=== PATIENT | male | born 1975 ===

== ENCOUNTER 2017-03-17 01:10 | Emergency (ER) | payer OTHER ==
[2017-03-17 01:42] VITALS: RESP 20; TEMP 98; O2SAT 98
--- NOTE | 2017-03-17 01:53 | C.PDOC ---
History Of Present Illness 41 year old patient presents to the ED complaining of anxiety for one week. Patient states he has been in and out of the hospital for these symptoms in [place]. Patient states he has appointment with psychiatry in 3 weeks. He states he has been very stressed with work and family issues and has been having trouble sleeping. He reports he has tried different medications in the past, but is unable to find medication that gives full relief. He states klonopin and ativan at low dose can help but he does not want to take medications anymore. He also reports feeling blood pressure high. Denies any chest pain, palpitations, SOB, dizziness, numbness or weakness, suicidal or homicidal ideation. Time Seen by Provider: 03/17/17 01:37 Chief Complaint (Nursing): Anxiety History Per: Patient History/Exam Limitations: no limitations Onset/Duration Of Symptoms: Other (1 week) Current Symptoms Are (Timing): Still Present Suicide/Self Injury Attempted (Context): None Modifying Factor(s): None Severity: None Pain Scale Rating Of: 0 Associated Symptoms: Anxiety Recent travel outside of the [facility]: No Past Medical History Reviewed: Historical Data, Nursing Documentation, Vital Signs Vital Signs: Last Vital Signs Temp 98 F 03/17/17 02:57 Pulse 76 03/17/17 02:57 Resp 20 03/17/17 02:57 BP 135/88 03/17/17 02:57 Pulse Ox 98 03/17/17 03:34 - Medical History PMH: Anxiety, HTN Family History: States: Unknown Family Hx - Social History Hx Alcohol Use: No Hx Substance Use: No - Immunization History Hx Tetanus Toxoid Vaccination: No Hx Influenza Vaccination: No Hx Pneumococcal Vaccination: No Review Of Systems Except As Marked, All Systems Reviewed And Found Negative. Cardiovascular: Negative for: Chest Pain, Palpitations Respiratory: Negative for: Shortness of Breath Neurological: Negative for: Weakness, Numbness, Dizziness Psych: Positive for: Anxiety. Negative for: Suicidal ideation, Other ( homicidal ideation) Physical Exam - Physical Exam Appears: Non-toxic, Other (anxious) Skin: Warm, Dry Head: Atraumatic, Normacephalic Eye(s): bilateral: Normal Inspection, PERRL, EOMI Neck: Normal ROM, Supple Chest: Symmetrical Cardiovascular: Rhythm Regular Respiratory: Normal Breath Sounds, No Rales, No Rhonchi, No Wheezing Back: Normal Inspection Extremity: Normal ROM Neurological/Psych: Oriented x3, Normal Speech, Normal Cognition Gait: Steady ED Course And Treatment O2 Sat by Pulse Oximetry: 98 (room air) Pulse Ox Interpretation: Normal Medical Decision Making Medical Decision Making: Impression: 41 y/o male with anxiety Plan: * Ativan Progress: [facility] reviewed, no med rec to view. Patient reports feeling mildly better, he wants to go home and sleep. Patient with stable vital signs and denies any SI/HI. Girlfriend is at bedside. Patient to be discharged and recommend outpatient follow up Disposition - Disposition Disposition: HOME/ ROUTINE Disposition Time: 01:52 Condition: GOOD Additional Instructions: [facility] at [address] [place] [address]. Please call [phone] or [phone] to arrange appointment. If you need to speak to someone immediately call Crisis Hotline [phone] Instructions: Anxiety (ED) - POA Present On Arrival: None - Clinical Impression Clinical Impression: Anxiety - PA / SERVICE DESK ASSOCIATE / Resident Statement MD/DO has reviewed & agrees with the documentation as recorded. - Scribe Statement The provider has reviewed the documentation as recorded by the Scribe Lauren Chaney All medical record entries made by the Scribe were at my direction and personally dictated by me. I have reviewed the chart and agree that the record accurately reflects my personal performance of the history, physical exam, medical decision making, and the department course for this patient. I have also personally directed, reviewed, and agree with the discharge instructions and disposition.
[2017-03-17 02:59] VITALS: BP 135/88; PULSE 76
== END 2017-03-17 02:57 | disposition home or self-care (01) ==
LOC: C.ER 01:10
DX: F41.9 Anxiety disorder, unspecified (principal); I10 Essential (primary) hypertension

== ENCOUNTER 2017-03-21 23:28 | Inpatient (IN) | payer MEDICAID, OTHER ==
[2017-03-21 23:55] VITALS: O2SAT 100
[2017-03-22 01:54] LABS: BASO # 0.1 K/uL (0.0-0.2); EOS % 0.3 % (0.0-4.0); HEMATOCRIT 46.5 % (35.0-51.0); LYMPH # 1.3 K/uL (1.0-4.3); LYMPH % 10.9 % (20.0-40.0); MEAN CELL VOLUME 83.8 fL (80.0-94.0); MEAN CORPUSCULAR HEMOGLOBIN 28.2 pg (27.0-31.0); MEAN CORPUSCULAR HGB CONC 33.7 g/dL (33.0-37.0); MEAN PLATELET VOLUME 8.9 fL (7.2-11.7); MONO # 0.8 K/uL (0.0-0.8); MONO % 6.7 % (0.0-10.0); RED CELL DISTRIBUTION WIDTH 12.6 % (11.5-14.5); WHITE BLOOD COUNT 12.2 K/uL (4.8-10.8)
[2017-03-22 01:55] LABS: URINE BILIRUBIN NEGATIVE (NEGATIVE); URINE BLOOD NEGATIVE (NEGATIVE); URINE COLOR Colorless (YELLOW); URINE GLUCOSE (UA) NORMAL (Normal); URINE KETONE NEGATIVE (NEGATIVE); URINE LEUKOCYTE ESTERASE NEG Leu/uL (Negative); URINE PROTEIN NEGATIVE (NEGATIVE); URINE UROBILINOGEN NORMAL mg/dL (0.2-1.0); WBC URINE < 1 /hpf (0-5)
[2017-03-22 02:00] LABS: CHLORIDE 101 mmol/L (98-107); POTASSIUM 3.9 mmol/L (3.6-5.2); SODIUM 139 mmol/L (132-148)
[2017-03-22 02:02] LABS: AST/SGOT 29 U/L (17-59); BILIRUBIN,TOTAL 0.7 mg/dL (0.2-1.3); CARBON DIOXIDE 22 mmol/L (22-30); GFR AFRICAN-AMERICAN > 60
[2017-03-22 02:03] LABS: ALB/GLOB RATIO 1.3 (1.0-2.1); ALCOHOL SERUM < 10 mg/dl (0-10); ALKALINE PHOSPHATASE 88 U/L (38-126); ALT/SGPT 51 U/L (21-72); BLOOD UREA NITROGEN 15 mg/dL (9-20); CALCIUM 9.3 mg/dl (8.6-10.4); GLUCOSE,RANDOM 106 mg/dL (75-110); TOTAL PROTEIN 7.9 g/dL (6.3-8.3)
--- NOTE | 2017-03-22 02:25 | C.PDOC ---
History Of Present Illness A 41 y/o male c/o episodes of anxiety that are on and off for the past 2 weeks. Pt denies suicidal or homicidal ideation, or any physical complaints. Time Seen by Provider: 03/21/17 23:55 Chief Complaint (Nursing): Anxiety History Per: Patient History/Exam Limitations: no limitations Onset/Duration Of Symptoms: Days Current Symptoms Are (Timing): Still Present Suicide/Self Injury Attempted (Context): None Modifying Factor(s): None Severity: Mild Associated Symptoms: denies: Suicidal Thoughts, Suicidal Plan Involuntary Hold By: None Recent travel outside of the [place]: No Additional History Per: Patient Past Medical History Reviewed: Historical Data, Nursing Documentation, Vital Signs Vital Signs: Last Vital Signs Temp 98.4 F 03/22/17 03:52 Pulse 72 03/22/17 03:52 Resp 16 03/22/17 03:52 BP 139/86 03/22/17 03:52 Pulse Ox 100 03/22/17 03:52 - Medical History PMH: Anxiety, HTN Denies: Chronic Kidney Disease Family History: States: Unknown Family Hx - Social History Hx Alcohol Use: No Hx Substance Use: No - Immunization History Hx Tetanus Toxoid Vaccination: No Hx Influenza Vaccination: No Hx Pneumococcal Vaccination: No Review Of Systems Except As Marked, All Systems Reviewed And Found Negative. Constitutional: Negative for: Fever, Chills Gastrointestinal: Negative for: Nausea, Vomiting Psych: Positive for: Anxiety. Negative for: Suicidal ideation, Withdrawal Physical Exam - Physical Exam Appears: Non-toxic, No Acute Distress Skin: Warm, Dry Head: Atraumatic, Normacephalic Eye(s): bilateral: Normal Inspection Cardiovascular: Rhythm Regular, No Murmur Respiratory: Normal Breath Sounds, No Accessory Muscle Use, No Wheezing Gastrointestinal/Abdominal: Soft, No Tenderness Neurological/Psych: Oriented x3, Normal Speech, Other (No focal deficit) ED Course And Treatment - Laboratory Results Result Diagrams: 03/22/17 01:48 03/22/17 01:48 O2 Sat by Pulse Oximetry: 100 (RA) Pulse Ox Interpretation: Normal Medical Decision Making Medical Decision Making: Impression: 41 y/o male c/o episodes of anxiety for 2 weeks. Plans: -Tylenol -Atarax -Desyrel -Reassess Disposition Discussed With : Jessenia Louis Doctor Will See Patient In The: Hospital Counseled Patient/Family Regarding: Diagnosis - Disposition Disposition: HOSPITALIZED Disposition Time: 02:24 Condition: STABLE - POA Present On Arrival: None (generalized anxiety disorder) - Clinical Impression Clinical Impression: Anxiety disorder - Scribe Statement The provider has reviewed the documentation as recorded by the Scribe Denise leija All medical record entries made by the Itzelibe were at my direction and personally dictated by me. I have reviewed the chart and agree that the record accurately reflects my personal performance of the history, physical exam, medical decision making, and the department course for this patient. I have also personally directed, reviewed, and agree with the discharge instructions and disposition.
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
[2017-03-23 10:38] VITALS: TEMP 97.7
--- NOTE | 2017-03-23 12:04 | CARD ---
APPROVED REPORT EKG Measurement Heart [id number] <Conclusion> Sinus tachycardia T wave abnormality, consider inferior ischemia T wave abnormality, consider anterolateral ischemia Abnormal ECG
--- NOTE | 2017-03-23 15:02 | PCM.PYCHPN ---
Psychiatric Progress Note - Psychiatric Progress Note Patient Chief Complaint: 'I'm feeling very anxious' Mental Status Examination - Cognitive Function Orientation: Person, Place, Situation, Time - Mood Mood: Depressed, Anxious - Affect Affect: Constricted, Depressed - Formal Thought Process Formal Thought Process: No Impairment - Homicidal Ideation Homicidal Ideation: No Goal/Treatment Plan - Goal/Treatment Plan Progress Toward Problem(s) and Goals/Treatment Plan: Generalized anxiety disorder R/O Major depressive disorder recurrent moderate CBT Psychoeducation Supportive therapy and group therapy Neurontin 100 mg by mouth 3 times a day BuSpar 10 mg by mouth twice a day Zoloft 25 mg daily Trazodone 50 mg by mouth daily at bedtime HTN Monitor signs and symptoms Increase Heart Rate Monitor signs and symptoms
--- NOTE | 2017-03-23 17:32 | CP.PCM.CON ---
History of Present Illness - History of Present Illness History of Present Illness: PGY-[address] Wilson HPI: Patient is a 41 year old male, with PMHx of hypertensino and anxiety, who came to the hospital on 03/22/17 c/o anxiety. Pt was accepted onto psychiatry floor, and psych team is consulting medicine for monitoring/ treatment of pts hypertension. Pt states that he has been treated for hypertension for the past two years. His PMD had placed him on Metoprolol 25mg twice daily, and pt states he was well-controlled on that medication until recently when his dosage was increased to 50mg twice daily. He denies being treated for any other health problems other than his anxiety. He does admit to recent "occasional headache," poor sleep, and the sensation of his "whole body being numb," but states this has occurred when he was under high stress lately because of tension with his girlfriend. Pt admits that thought of his BP being elevated makes him anxious, and that his two conditions "feed into each other." He denies lightheadedness/dizziness at this time, as well as chest pain, palpitations, shortness of breath, abdominal pain, episodes of nausea/vomiting, scotoma, or extremity weakness. 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 Allergies: Alprazolam, Clonazepam, Metoclopramide Review of Systems - Constitutional Constitutional: absent: Chills, Fever, Weakness - EENT Eyes: absent: Blurred Vision, Change in Vision Ears: absent: Ear Discharge Nose/Mouth/Throat: absent: Nasal Congestion, Sore Throat - Cardiovascular Cardiovascular: absent: Chest Pain, Chest Pain at Rest, Dyspnea, Dyspnea on Exertion, Rapid Heart Rate - Respiratory Respiratory: absent: Cough, Hemoptysis, Chest Congestion - Gastrointestinal Gastrointestinal: absent: Abdominal Pain, Nausea, Vomiting - Genitourinary Genitourinary: absent: Difficulty Urinating, Dysuria - Musculoskeletal Musculoskeletal: absent: Back Pain, Numbness, Tingling - Integumentary Integumentary: absent: Dry Skin - Neurological Neurological: absent: Tingling, Weakness - Psychiatric Psychiatric: absent: Anxiety, Depression - Endocrine Endocrine: absent: Fatigue, Polydipsia, Polyphagia Past Patient History - Infectious Disease Hx of Infectious Diseases: None - Past Social History Smoking Status: Never Smoked - CARDIAC Hx Cardiac Disorders: No Hx Angina: No Hx Atrial Fibrillation: No Hx Cardia Arrhythmia: No Hx Circulatory Problems: No Hx Congestive Heart Failure: No Hx Heart Attack: No Hx Heart Murmur: No Hx Heart Transplant: No Hx Hypercholesterolemia: No Hx Hypertension: Yes Hx Hypotension: No Hx Internal Defibrillator: No Hx Mitral Valve Prolapse: No Hx Pacemaker: No Hx Peripheral Edema: No Hx Peripheral Vascular Disease: No Other/Comment: Familial history of obstructive coronary disease. (Father) - PULMONARY Hx Respiratory Disorders: No Hx Tuberculosis: No - NEUROLOGICAL Hx Neurological Disorder: No HX Cerebrovascular Accident: No Hx Seizures: No - HEENT Hx HEENT Problems: No - RENAL Hx Chronic Kidney Disease: No - ENDOCRINE/METABOLIC Hx Endocrine Disorders: No - HEMATOLOGICAL/ONCOLOGICAL Hx Blood Disorders: No Hx Cancer: No Hx Human Immunodeficiency Virus (HIV): No - INTEGUMENTARY Hx Dermatological Problems: No - MUSCULOSKELETAL/RHEUMATOLOGICAL Hx Musculoskeletal Disorders: No - GASTROINTESTINAL Hx Gastrointestinal Disorders: No - GENITOURINARY/GYNECOLOGICAL Hx Genitourinary Disorders: No Hx Sexually Transmitted Disorders: No - PSYCHIATRIC Hx Substance Use: No - SURGICAL HISTORY Hx Surgeries: No - ANESTHESIA Hx Anesthesia: No Meds Allergies/Adverse Reactions: Allergies Allergy/AdvReac Type Severity Reaction Status Date / Time alprazolam [From Xanax] Allergy Verified 03/17/17 01:34 clonazepam [From Klonopin] Allergy Verified 03/17/17 01:34 metoclopramide [From Reglan] Allergy Verified 03/17/17 01:34 - Medications Medications: Current Medications Buspirone HCl (Buspar) 5 mg PO BID SB Last Admin: 03/23/17 17:07 Dose: 5 mg Clonidine HCl (Catapres) 0.1 mg PO Q6H PRN PRN Reason: Hypertension Last Admin: 03/22/17 21:11 Dose: 0.1 mg Hydroxyzine HCl (Atarax) 25 mg PO Q6H PRN PRN Reason: Anxiety Lorazepam (Ativan) 0.5 mg PO Q6H PRN PRN Reason: Extreme anxiety Last Admin: 03/22/17 23:36 Dose: 0.5 mg Metoprolol Tartrate (Lopressor) 50 mg PO BID [facility] Last Admin: 03/23/17 17:07 Dose: 50 mg Sertraline HCl (Zoloft) 25 mg PO DAILY [facility] Last Admin: 03/23/17 09:47 Dose: Not Given Trazodone HCl (Desyrel) 50 mg PO HS PRN PRN Reason: Insomnia Physical Exam - Constitutional Appears: Non-toxic, No Acute Distress - Head Exam Head Exam: ATRAUMATIC, NORMOCEPHALIC - Eye Exam Eye Exam: EOMI Pupil Exam: PERRL - ENT Exam ENT Exam: Mucous Membranes Moist - Neck Exam Neck exam: Negative for: Tenderness - Respiratory Exam Respiratory Exam: Clear to Auscultation Bilateral, NORMAL BREATHING PATTERN. absent: Rales, Rhonchi, Wheezes - Cardiovascular Exam Cardiovascular Exam: REGULAR RHYTHM, +S1, +S2 - GI/Abdominal Exam GI & Abdominal Exam: Normal Bowel Sounds, Soft. absent: Tenderness - Extremities Exam Extremities exam: Positive for: normal inspection. Negative for: pedal edema, tenderness - Back Exam Back exam: absent: CVA tenderness (L), CVA tenderness (R) - Neurological Exam Neurological exam: Alert, Oriented x3 - Psychiatric Exam Psychiatric exam: Normal Affect, Normal Mood - Skin Skin Exam: Dry, Normal Color, Warm Results - Vital Signs Recent Vital Signs: Last Vital Signs Temp 97.7 F 03/23/17 10:37 Pulse 88 03/23/17 15:43 Resp 20 03/23/17 10:37 BP 124/82 03/23/17 15:43 Pulse Ox 100 03/22/17 04:14 - Labs Result Diagrams: 03/22/17 01:48 03/22/17 01:48 Assessment & Plan - Assessment and Plan (Free Text) Assessment: 41 year old male with PMHx of HTN and anxiety, presenting with panic attacks. Medicine consulted to manage blood pressure. Plan: HTN Elevated on admission, normotensive now Pt treated for two years - recent increase in dosage of home med Home med restarted: Metoprolol 50mg PO BID Monitor pressure Generalized anxiety disorder Management per psych team DW Dr. Steve Young, PGY-1
[2017-03-24 09:24] LABS: BASO % 0.4 % (0.0-2.0); EOS # 0.1 K/uL (0.0-0.7); EOS % 0.8 % (0.0-4.0); LYMPH % 19.4 % (20.0-40.0); MEAN CELL VOLUME 83.6 fL (80.0-94.0); MEAN CORPUSCULAR HEMOGLOBIN 28.3 pg (27.0-31.0); MEAN CORPUSCULAR HGB CONC 33.8 g/dL (33.0-37.0); MONO # 0.5 K/uL (0.0-0.8); MONO % 5.2 % (0.0-10.0); NRBC % 0.1 % (0.0-2.0); RED CELL DISTRIBUTION WIDTH 12.6 % (11.5-14.5); WHITE BLOOD COUNT 10.1 K/uL (4.8-10.8)
--- NOTE | 2017-03-24 09:36 | CP.PCM.PN ---
Subjective - Date & Time of Evaluation Date of Evaluation: 03/24/17 Time of Evaluation: 09:36 - Subjective Subjective: PGY-[address] Maruqez's service: Pt seen and examined at bedside. Pt found sleeping comfortable in bed. Pt states he felt his heart "beating fast" overnight, but denies chest pain, palpitations, SOB, abdominal pain, N/V/D/C. Pt well controlled on current BP regimen. Objective - Vital Signs/Intake and Output Vital Signs (last 24 hours): Temp Pulse Resp BP Pulse Ox 97.7 F 136 H 18 122/75 100 03/23/17 10:37 03/24/17 07:36 03/24/17 07:36 03/24/17 07:36 03/22/17 04:14 - Medications Medications: Current Medications Buspirone HCl (Buspar) 5 mg PO BID [facility] Last Admin: 03/23/17 17:07 Dose: 5 mg Clonidine HCl (Catapres) 0.1 mg PO Q6H PRN PRN Reason: Hypertension Last Admin: 03/22/17 21:11 Dose: 0.1 mg Hydroxyzine HCl (Atarax) 25 mg PO Q6H PRN PRN Reason: Anxiety Lorazepam (Ativan) 0.5 mg PO Q6H PRN PRN Reason: Extreme anxiety Last Admin: 03/23/17 23:53 Dose: 0.5 mg Metoprolol Tartrate (Lopressor) 50 mg PO BID [facility] Last Admin: 03/23/17 17:07 Dose: 50 mg Sertraline HCl (Zoloft) 25 mg PO DAILY [facility] Last Admin: 03/23/17 09:47 Dose: Not Given Trazodone HCl (Desyrel) 50 mg PO HS PRN PRN Reason: Insomnia - Labs Labs: 03/24/17 09:16 - Additional Findings Additional findings: - Constitutional Appears: Non-toxic, No Acute Distress - Head Exam Head Exam: ATRAUMATIC, NORMOCEPHALIC - Eye Exam Eye Exam: EOMI Pupil Exam: PERRL - ENT Exam ENT Exam: Mucous Membranes Moist - Neck Exam Neck exam: Negative for: Tenderness - Respiratory Exam Respiratory Exam: Clear to Auscultation Bilateral, NORMAL BREATHING PATTERN. absent: Rales, Rhonchi, Wheezes - Cardiovascular Exam Cardiovascular Exam: REGULAR RHYTHM, +S1, +S2, Non-tachy - GI/Abdominal Exam GI & Abdominal Exam: Normal Bowel Sounds, Soft. absent: Tenderness - Extremities Exam Extremities exam: Positive for: normal inspection. Negative for: pedal edema, tenderness - Back Exam Back exam: absent: CVA tenderness (L), CVA tenderness (R) - Neurological Exam Neurological exam: Alert, Oriented x3 - Psychiatric Exam Psychiatric exam: Normal Affect, Normal Mood - Skin Skin Exam: Dry, Normal Color, Warm Assessment and Plan - Assessment and Plan (Free Text) Assessment: 41 year old male with PMHx of HTN and anxiety, presenting with panic attacks. Medicine consulted to manage blood pressure. Plan: HTN Elevated on admission, normotensive now Pt treated for two years - recent increase in dosage of home med Home med restarted: Metoprolol 50mg PO BID - Started on Clonidine 0.1 mg Q6H by psych team Monitor pressure A1C WNL Generalized anxiety disorder Management per psych team Disposition: Medicine team will sign off, as pt is well controlled on current BP regimen. Pt was offered one month supply of prescriptions for Metoprolol and Clonidine to fill as outpatient. Pt stated he already had Metoprolol at home, and did not want prescription for Clonidine. Pt said he would follow up with PMD in [place] where he "has insurance." DW Dr. Alma Young, PGY-1
[2017-03-24 09:47] LABS: CHLORIDE 102 mmol/L (98-107); POTASSIUM 3.3 mmol/L (3.6-5.2); SODIUM 139 mmol/L (132-148)
[2017-03-24 09:49] LABS: BILIRUBIN,TOTAL 0.9 mg/dL (0.2-1.3); CARBON DIOXIDE 25 mmol/L (22-30); GFR AFRICAN-AMERICAN > 60
[2017-03-24 09:50] LABS: ALB/GLOB RATIO 1.3 (1.0-2.1); ALKALINE PHOSPHATASE 64 U/L (38-126); ALT/SGPT 55 U/L (21-72); AST/SGOT 26 U/L (17-59); BLOOD UREA NITROGEN 14 mg/dL (9-20); CALCIUM 9.4 mg/dl (8.6-10.4); GLUCOSE,RANDOM 113 mg/dL (75-110); TOTAL PROTEIN 7.7 g/dL (6.3-8.3)
--- NOTE | 2017-03-24 13:22 | PCM.PYCHPN ---
Psychiatric Progress Note - Psychiatric Progress Note Patient seen today, length of contact: 16min Patient Chief Complaint: 'I feel pretty good.' Problems Identified/Issues Discussed: Patient was seen and evaluated, chart reviewed and discussed with the nurse. The patient states that he is feeling pretty good and that currently he isnt experiencing any anxiety or depression. He also denies any auditory or visual hallucinations, S/I, or H/I. However, he complains of a headache, dizziness, and ear pain in response to noise which he attributes to the medication Buspar. He states that he couldnt sleep last night and took Ativan which didnt help. He says that he was feeling very anxious last night because he was worried about his blood pressure elevating. He states that he has a good appetite but does not participate in group activities. He has been compliant with most of his medications except he states that he does not wish to take Zoloft because he feels that hes on too many medications. The patient appears to be doing better, however, he behaves a bit odd at times. He has organized thoughts and speech, appropriate affect, and is kempt. Supportive therapy and psychoeducation were given. Mental Status Examination - Cognitive Function Orientation: Person, Place, Situation, Time Memory: Intact Attention: WNL Concentration: WNL Association: WNL Fund of Knowledge: WNL - Affect Affect: Constricted - Speech Speech: Appropriate - Formal Thought Process Formal Thought Process: No Impairment - Suicidal Ideation Suicidal Ideation: No - Homicidal Ideation Homicidal Ideation: No Goal/Treatment Plan - Goal/Treatment Plan Progress Toward Problem(s) and Goals/Treatment Plan: Generalized anxiety disorder R/O Major depressive disorder recurrent moderate CBT Psychoeducation Supportive therapy and group therapy Neurontin 100 mg by mouth 3 times a day BuSpar 10 mg by mouth twice a day Zoloft 25 mg daily Trazodone 50 mg by mouth daily at bedtime HTN Monitor signs and symptoms Increase Heart Rate Monitor signs and symptoms
[2017-03-24] MEDS: Potassium Chloride 20 mEq ER Tab PO SCH ×2 (14:59→20:26)
[2017-03-25 04:08] VITALS: BP 132/84; PULSE 79; RESP 18
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
== END 2017-03-25 11:38 | disposition home or self-care (01) | DRG 430 ==
LOC: C.ER 23:28 → C.5E 03-22 02:25
PROVIDERS: ADMIT Psychiatry & Neurology Psychiatry; ATTEND Psychiatry & Neurology Psychiatry
PROC: GZ3ZZZZ Medication Management (ICD-10-PCS; principal; 2017-03-22)
PROC: GZHZZZZ Group Psychotherapy (ICD-10-PCS; 2017-03-22)
PROC: GZ56ZZZ Individual Psychotherapy, Supportive (ICD-10-PCS; 2017-03-22)
DX: F33.1 Major depressive disorder, recurrent, moderate (principal); F41.1 Generalized anxiety disorder; I10 Essential (primary) hypertension; R00.9 Unspecified abnormalities of heart beat